=== PATIENT | female | born 1985 | race Caucasian/White ===

== ENCOUNTER 2018-07-03 09:04 | Emergency (ER) | payer OTHER ==
[~2018-07-03] VITALS: Ht 167.6 cm; Wt 136.1 kg
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
--- OUTSIDE RECORDS SUMMARY | ~2018-07-03 | XMS | Clinical Summary ---
Demographics + + + | Address | [address] [facility] [facility] [address] | | | [place] [address] | + + + | Home Phone | | + + + | Preferred Language | Unknown | + + + | Marital Status | | + + + | Baptism Affiliation | 1038 | + + + | Race | Unknown | + + + | Ethnic Group | Unknown | + + + Author + + + | Author | [facility] | + + + | Organization | [facility] | + + + | Address | Unknown | + + + | Phone | Unavailable | + + + Support + + + + + | Name | Relationship | Address | Phone | + + + + + | Kindra Reed | ECON | [address] | | | | | [place] | | | | | [address] | | + + + + + Care Team Providers + +------+ + | Care Aerosol Line Operator Name | Role | Phone | + [...] | | 04/17/ | 8115.0 | | [id number]: Qty: 1 on | | | MEDICAL [...] | | | GLBU | | | /[id number] | | | | | | | | 0 / | + +------+------+ +--------+--------+--------+ | Upper End PlateImplanted: | | | GLOBUS | | | 151.32 | | Qty: 1 on 09/05/2015 by Estuardo, | | | MEDICAL - | | | 3 | | Trinidad Dennison MD | | | GLBU | | | /[id number] | | | | | | | | 3 / | + +------+------+ +--------+--------+--------+ | Lower End PlateImplanted: | | | GLOBUS | | | 151.37 | | Qty: 1 on 09/05/2015 by Estuardo, | | | MEDICAL - | | | 3 | | Trinidad Dennison MD | | | GLBU | | | /[id number] | | | | | | | | 3 / | + +------+------+ +--------+--------+--------+ | Plate Ant Cerv Xtend 2lvl | | | GLOBUS | | | 161.23 | | 30mm - [id number]: | | | MEDICAL - | | | 0 / / | | Qty: 1 on 09/05/2015 by Estuardo, | | | GLBU | | | | | Trinidad Dennison MD | | | | | | | + +------+------+ +--------+--------+--------+ | Screw Xtend Fa S-T 4.2x14mm - | | | GLOBUS | | | 161.71 | | [id number]: Qty: 1 on | | | MEDICAL [...] GLOBUS | | | 161.71 | | [id number]: Qty: 1 on | | | MEDICAL [...] | ODS [employer] PLAN | ODS | [id number] | | | | | | HEALTH | | | | | | | PLAN | | | | | + +--------+ +------+-------+ + | MEDICAID | [employer] | [id number] | | | [address] | | | N | | | | [place] | | | [place] | | | | [phone] | | | 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
--- OUTSIDE RECORDS SUMMARY | ~2018-07-03 | XMS | Clinical Summary ---
Demographics + + + | Address | [address] [facility] [address] | | | [place] [address] | + + + | Home Phone | | + + + | Preferred Language | Unknown | + + + | Marital Status | | + + + | Taoism Affiliation | 1013 | + + + | Race | Unknown | + + + | Ethnic Group | Unknown | + + + Author + + + | Author | [facility] | | | and [place] | + + + | Organization | [facility] | | | and [place] | + + + | Address | Unknown | + + + | Phone | Unavailable | + + + Support + + +---------+ + | Name | Relationship | Address | Phone | + + +---------+ + | Kindra Norwood ECON | Unknown | | + + +---------+ + | Neville Urbina | ECON | Unknown | | + + +---------+ + Care Team Providers + +------+ + | Care Mechanical Product Engineer Name | Role | Phone | + +------+ + | Willie Escobar DO | PP | | + +------+ + Allergies + + + + + + | Active Allergy | Reactions | Severity | Noted | Comments | | | | | Date | | + + + + + + | Adhesive & Tape | Other (See Comments) | Medium | 01/01/20 | Bandaids removes | | | | | 16 | skin when removed | + + + + + + | Codeine | Hives, Shortness Of | High | 09/05/20 | HEARTBURN | | | Breath, Itching, | | 15 | | | | Nausea Only | | | | + + + + + + | Duloxetine | Other (See Comments) | | 12/27/19 | Suicidal ideation | | | | | 16 | | + + + + + + | Morphine | Itching, Nausea Only | Low | 09/05/20 | | | | | | 15 | | + + + + + + | Sulfa Antibiotics | Other (See Comments) | Medium | /10/20 | Eye pressure | | | | | 16 | problems with drops | + + + + + + Current Medications + + +---------+---------+------+------+-------+ | Prescription | Sig. | Disp. | Refills | Star | End | Statu | | | | | | t | Date | s | | | | | | Date | | | + + +---------+---------+------+------+-------+ | diphenhydrAMINE | Take 1 capsule by | 90 | 0 | 05/0 | | Activ | | (BENADRYL) 25 MG | mouth every 6 hours | capsule | | 3/20 | | e | | capsule | as needed for | | | 16 | | | | | Itching. | | | | | | + + +---------+---------+------+------+-------+ | diclofenac | take 1 tablet by | | 0 | 02/1 | | Activ | | (VOLTAREN) 75 mg EC | mouth every 12 hours | | | 2/20 | | e | | tablet | | | | 18 | | | + + +---------+---------+------+------+-------+ | cyclobenzaprine | | | 0 | 04/0 | | Activ | | (FLEXERIL) 10 mg | | | | 8/20 | | e | | tablet | | | | 18 | | | + + +---------+---------+------+------+-------+ | gabapentin | Take 600 mg by mouth | | 0 | 04/0 | | Activ | | (NEURONTIN) 300 mg | 4 times daily. | | | 4/20 | | e | | capsule | | | | 18 | | | + + +---------+---------+------+------+-------+ | levonorgestrel | 1 Device by | | | | | Activ | | (MIRENA, 52 MG,) 20 | Intrauterine route | | | | | e | | MCG/24HR IUD | once. | | | | | | + + +---------+---------+------+------+-------+ | loratadine | Take 10 mg by mouth | | | | | Activ | | (CLARITIN) 10 mg | Daily. | | | | | e | | tablet | | | | | | | + + +---------+---------+------+------+-------+ Active Problems + + + | Problem | Noted Date | + + + | Pain in both upper extremities | 07/06/2016 | + + + | Pain in both lower extremities | 07/06/2016 | + + + | IBS (irritable bowel syndrome) | 01/15/2016 | + + + | PONV (postoperative nausea and vomiting) | 01/15/2016 | + + + | S/P cervical spinal fusion | 01/15/2016 | + + + | H/O section | 01/15/2016 | + + + | Class III, BMI 40-49.9 | 01/15/2016 | + + + | Lumbar disc herniation | 01/15/2016 | + + + | Chronic pain syndrome | | + + + | Radiculopathy, lumbar region | | + + + | Postlaminectomy syndrome, not elsewhere classified | | + + + | Depression | | + + + | HTN (hypertension) | | + + + | Tobacco use | | + + + Family History + + +------+ + | Medical History | Relation | Name | Comments | + + +------+ + | No Known Problems | Brother | | | + + +------+ + | Gout | Father | | | + + +------+ + | Hypertension | Father | | | + + +------+ + | Kidney cancer | Father | | | + + +------+ + | No Known Problems | Maternal | | | | | Grandfath | | | | | er | | | + + +------+ + | Breast cancer | Maternal | | | | | Grandmoth | | | | | er | | | + + +------+ + | Diabetes | Mother | | Prediabetes | + + +------+ + | Hypertension | Mother | | | + + +------+ + | Ulcerative colitis | Mother | | "Colitis" | + + +------+ + | Heart disease | Other | | | + + +------+ + | Prostate cancer | Other | | Uncle | + + +------+ + | Stroke | Paternal | | | | | Aunt | | | + + +------+ + | Other (see comment) | Paternal | | BLOOD CLOTS | | | Aunt | | | + + +------+ + | Heart attack | Paternal | | | | | Grandfath | | | | | er | | | + + +------+ + | Auto-Immune | Paternal | | | | Disorders | Grandmoth | | | | | er | | | + + +------+ + | No Known Problems | Son | | | + + +------+ + + +------+ + + | Relation | Name | Status | Comments | + +------+ + + | Brother | | Alive | | + +------+ + + | Father | | | CANCER | | | | (Age | | | | | 63) | | + +------+ + + | Maternal Grandfather | | | | + +------+ + + | Maternal Grandmother | | | Complications hip fracture | | | | (Age | | | | | 80) | | + +------+ + + | Mother | | Alive | | + +------+ + + | Other | | | | + +------+ + + | Paternal Aunt | | Alive | | + +------+ + + | Paternal Aunt | | | | + +------+ + + | Paternal Aunt | | | | + +------+ + + | Paternal Grandfather | | | [place] | | | | (Age | | | | | 40) | | + +------+ + + | Paternal Grandmother | | Alive | | + +------+ + + | Son | | Alive | | + +------+ + + Social History + + + +--------+ + | Tobacco Use | Types | Packs/Day | Years | Date | | | | | Used | | + + + +--------+ + | Former Smoker | Cigarettes | 0.15 | 15 | 08/19/2000 - | | | | | | 08/19/2015 | + + + +--------+ + + +---+---+---+ | Smokeless Tobacco: | | | | | Never Used | | | | + +---+---+---+ + + +---------+ + | Alcohol Use | Drinks/We | oz/Week | Comments | | | ek | | | + + +---------+ + | Yes | 0 | 0.0 | Rare 1 time per year | | | Standard | | | [...] + + + | Blood Pressure | 122/78 | 02/18/2018926 PDT | + + + + | Pulse | 76 | 02/18/2018926 PDT | + + + + | Temperature | 37.5 C (99.5 F) | 03/26/20161950 PDT | + + + + | Respiratory Rate | 16 | 02/18/2018926 PDT | + + + + | Oxygen Saturation | 96% | 03/26/20161950 PDT | + + + + | Inhaled Oxygen | - | - | | Concentration | | | + + + + | Weight | 140.2 kg (309 lb) | 02/18/2018926 PDT | + + + + | Height | 167.6 cm (5' 6") | 02/18/2018926 PDT | + + + + | Body Mass Index | 49.87 | 02/18/2018926 PDT | + + + + Plan of [...] + + + | Vaccine: | | 10/19/2011 | | | Dtap/Tdap/Td (2 - | 2 | | | | Td) | | | | + + + + + Results Not on filefrom Last 3 Months Insurance + +--------+ +------+ +---------+ | Payer | Benefi | Subscriber | Type | Phone | Address | | | t Plan | ID | | | | | | / | | | | | | | Group | | | | | + +--------+ +------+ +---------+ | [facility] | PHP | [id number] | PPO | [phone] | | PLAN | PERSON | | | [phone] | | | | [place] | | | | | | | OPEN | | | | | | | OPTION | | | | | + +--------+ +------+ +---------+ + +--------+ +--------+ + + | Guarantor [...] [address] | | | al/Fam | | 1984 | [phone] | [place] | | | [place] | | | [phone] | + +--------+ +--------+ + +
--- OUTSIDE RECORDS SUMMARY | ~2018-07-03 | XMS | Clinical Summary ---
Demographics + + + | Address | [address] | | | [place] [address] | + + + | Home Phone | | + + + | Preferred Language | Unknown | + + + | Marital Status | | + + + | Baptist Affiliation | 1013 | + + + | Race | Unknown | + + + | Ethnic Group | Unknown | + + + Author + + + | Author | [facility] | | | and [place] | + + + | Organization | [facility] | | | and [place] | [...] Team Providers + +------+ + | Care Safety Specialist Name | Role | Phone | + [...] + | Paternal Grandfather | | | [place] | | | | (Age | | [...] | | + +--------+ +------+ +---------+ | [facility] | PHP | [id number] | PPO | [phone] | | PLAN | PERSON | [...] | | al/Fam | | 1984 | [phone] | [place] | | | bran | | | [phone] | [phone] | + +--------+ +--------+ + +
[~2018-07-03 09:04] MED LIST: ASACOL400 MG; CLINDAMYCIN HC150 MG; CLINDAMYCIN HC300 MG PO; CYCLOBENZAPRINE10 MG PO; CYCLOBENZAPRINE5 MG PO; DEXAMETHASONE4 MG PO; DIAZEPAM5 MG PO; DIPHENHYDRAMINE25 M1 PO; DOC-Q-LACE100 MG PO; DOXYCYCLINE HY100 MG PO; DOXYCYCLINE MO100 M1 PO; FLAGYL500 MG PO; GABAPENTIN300 MG PO; IMODIUM A-D2 M1; KEFLEX500 MG PO; LOMOTIL TABLET1 EACH; LORTAB ELIXIR473 ML PO; MEDROL4 M1 PO; MIRENA1 EACH; NAPROXEN500 MG PO; NORCO 5-325 TA1 EACH PO; OXYCODONE HCL5 MG PO; OXYCONTIN15 MG PO; OXYCONTIN20 MG PO; PERCOCET 5-3251 EACH PO; PERCOCET 7.5-31 EACH PO; POLYETHYLENE GL17 GM PO; TRAMADOL HCL50 MG
--- OUTSIDE RECORDS SUMMARY | 2018-07-03 09:08 | XMS ---
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 EDash VISIT COUNT (12 MO.) 1 HALINA Novak TOTAL 1 NOTE: Visits indicate total known visits. ED/UCC VISIT TRACKING (12 MO.) 07/03/2018 09:04 HALINA [place] TYPE: Emergency COMPLAINT: - LOWER BACK PAIN INPATIENT VISIT TRACKING (12 MO.) No inpatient visits to display in this time frame [id number]
[2018-07-03] MEDS ORDERED: FLONASE ALLERG9.9 ML NAS ×2 (09:18→09:19)
[2018-07-03] MEDS ORDERED: CYCLOBENZAPRINE10 MG PO (10:08)
[2018-07-03] MEDS ORDERED: NEURONTIN300 MG PO (10:08)
== END 2018-07-03 10:39 | disposition home or self-care (01) ==
LOC: ED 09:04
DX: M54.42 Lumbago with sciatica, left side (principal); M54.41 Lumbago with sciatica, right side; F17.200 Nicotine dependence, unspecified, uncomplicated; Z88.5 Allergy status to narcotic agent
CPT/HCPCS: 99283

== ENCOUNTER 2021-07-30 22:08 | Emergency (ER) | payer OTHER ==
[~2021-07-30] VITALS: Ht 167.6 cm; Wt 149.5 kg
[~2021-07-30 22:08] MED LIST changes: +AMITRIPTYLINE H75 MG PO; +BENADRYL25 MG PO; +DICLOFENAC35 MG PO; +FLONASE ALLERG9.9 ML NAS; +LOMOTIL TABLET1 EACH PO; +NEURONTIN300 MG PO; +PRILOSEC OTC20 MG PO; +TYLENOL325 MG PO
--- OUTSIDE RECORDS SUMMARY | 2021-07-30 22:50 | XMS ---
PreManage Notification: BROOKS SUGGS Security Psychiatric Rn Events 1 event(s) in the past 18 months Most recent security events: Elopement at [facility] 12/21/2020 05:58 - Other Details: PATIENT LWBS. CRITERIA MET - Group Notification - PDMP CARE PROVIDERS There are no care providers on record at this time. Terry has no Care Guidelines for this patient. EDash VISIT COUNT (12 MO.) 2 [facility] TOTAL 2 NOTE: Visits indicate total known visits. ED/UCC VISIT TRACKING (12 MO.) [facility] COMPLAINT: - NECK PAIN,MIGRAINE [facility]2020 05[facility] COMPLAINT: - NECK PAIN NON INJURY INPATIENT VISIT TRACKING (12 MO.) No inpatient visits to display in this time frame [id number]
== END 2021-07-31 00:29 | disposition home or self-care (01) ==
LOC: ED 22:08
DX: M54.2 Cervicalgia (principal); G43.909 Migraine, unspecified, not intractable, without status migrainosus; K21.9 Gastro-esophageal reflux disease without esophagitis; F17.200 Nicotine dependence, unspecified, uncomplicated; Z88.5 Allergy status to narcotic agent; Z79.899 Other long term (current) drug therapy
CPT/HCPCS: 96374; 96375; 99283-25; J1200; J1885; J2405; J2765; J7030

== ENCOUNTER 2021-07-31 10:15 | Day surgery (SDC) | payer OTHER ==
[~2021-07-31] VITALS: Ht 167.6 cm; Wt 140.4 kg
--- NOTE | 2021-07-31 12:44 | NUR ---
07/31/21 1244 Sheets,Brigida 1227 PT ARRIVED TO PACU ON 6L VIA MASK, PT WAKES AND IS REORIENTED TO PACU. PT REPORTS PAIN IN LEFT HIP. PT ROLLED TO RIGHT SIDE. O2 REMVOED 1235 PT ROLLED TO BACK AND HOB INCREASED, PT RATES PAIN IN BACK 4/10 AND TOLERABLE. PT SIPPING WATER.
--- NOTE | 2021-08-05 16:47 | PATH ---
[facility] [address] [place], [place] [address] Signed THIS IS AN ADDENDUM REPORT SPECIMEN(S): A BONE MARROW - CORE SPECIMEN(S): B BONE MARROW - ASPIRATION SPECIMEN(S): C FLOW CYTOMETRY, EDTA ASP CLINICAL HISTORY: Bone marrow biopsy. 36-year-old female with chronic leukocytosis. See attached. Evaluate MPN. 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 Peripheral blood - Neutrophilia (13.2K/uL). - Mild thrombocytosis. B. Bone marrow aspirate smears, clot section/cell block, and core biopsy: - Hypercellular bone marrow for age with trilineage progressive hematopoiesis and mild megakaryocytic hyperplasia. - Negative for morphologic features of myelodysplastic syndrome (MDS). - Negative for increase in plasma cells or infiltrative bone marrow processes. - Please see diagnostic comment. DIAGNOSTIC COMMENT: The patient's history of leukocytosis is noted. The bone marrow is hypercellular for age with trilineage progressive hematopoiesis. Mild megakaryocytic hyperplasia is noted. No morphologic features suggestive of myelodysplastic are identified. Concurrent flow cytometry analysis shows normal phenotype. Clinical concern for myeloproliferative neoplasm is noted. Correlation with pending cytogenetic studies and FISH BCR/ABL and JACK2 mutation study will be helpful for further assessment. The results will be reported in an addendum. This case has been reviewed and dictated by Linsey Rawls M.D.FACP, board certified hematopathologist. NA:vlg:C2NR PERIPHERAL BLOOD: HEMOGRAM ([facility], [facility]; 07/30/2021): WBCs 18.3 K/uL, RBCs 4.73 K/uL, HGB 12.2 0.0 g/dL, HCT 38.6%, MCV 81.7 f/L, MCHC 31.6 g/dL, RDW 17%, PLT 493 K/uL, and MPV 6.9 f/L. DIFFERENTIAL (manual): 72% neutrophils, 22% lymphocytes, 3% monocytes, 1% eosinophils, 1% basophils, and 1% myelocytes, absolute neutrophils count: 13.2K/uL. PATIENT NAME: BROOKS SUGGS PATHOLOGY DATE OF : 83 REPORT #: [id number] PHYSICIAN: ROSY ROCHA PCP: SARAH LAW MD REPORT IS CONFIDENTIAL AND NOT TO BE RELEASED WITHOUT AUTHORIZATION [facility] [address] [place], [place] [address] Signed Review of peripheral blood smear and CBC data demonstrate that the RBCs are normal in number and are normocytic normochromic with no anemia present. The WBCs are increased in number with neutrophilia present. The neutrophils show unremarkable morphology. No immature cells are seen. The platelets are slightly increased in number with occasional large platelets seen. BONE MARROW: BONE MARROW ASPIRATES SMEARS: The bone marrow aspirate smears are adequately cellular for evaluation. Trilineage hematopoiesis is present with progressive ordinary maturation. There is no increase in blasts noted. The M:E ratio appears normal. No dyshematopoiesis is identified. The megakaryocytes are scattered and appear increased in number with occasional large and hyperlobated forms seen. BONE MARROW DIFFERENTIAL (200 CELLS): 1.5% blasts, 4% promyelocytes, 8% myelocytes, 36% segmented neutrophils, 10% lymphocytes, 3% monocytes, 3% eosinophils, 2.5% plasma cells, 26% erythroid precursors. BONE MARROW CORE BIOPSY AND CLOT SECTION (CELL BLOCK): The bone marrow core biopsy demonstrates hypercellular bone marrow for age with an averaging cellularity of 75-80%. Trilineage hematopoiesis is present with progressive hematopoiesis with progressive trilineage hematopoiesis. There are no lymphoid aggregates, granulomas, or metastatic tumor cells present. The megakaryocytes are scattered and appear increased in number with occasional large hyperlobated megakaryocytes seen. The clot section shows similar findings. SPECIAL STAINS: Special stains are performed (with appropriately reactive control) and show the following results: - Iron stain (aspirate smears): Normal storage iron, negative for ring sideroblasts. - Iron (clot section/cell block B1): Storage iron present. - Reticulin stain (block A1): Mild to moderate increase in bone marrow reticulin fibrosis (grade1-2). IMMUNOHISTOCHEMICAL STAINS: Immunohistochemical stains are performed on (A1) (with appropriately reactive control) and show the following results: - CD34: Highlights scattered positive cells with no increase in blasts noted. - CD117: Highlights scattered positive cells with no increase in blasts noted. - MPO: Highlights myeloid precursors with normal pattern of distribution. - CD71: Highlights erythroid precursors with normal pattern of distribution. PATIENT NAME: BROOKS SUGGS PATHOLOGY DATE OF : 83 REPORT #: [id number] PHYSICIAN: ROSY ROCHA PCP: SARAH LAW MD REPORT IS CONFIDENTIAL AND NOT TO BE RELEASED WITHOUT AUTHORIZATION [address] [address] Signed - Factor VIII: Highlights megakaryocytes, slightly increased in number. NA:vlg FLOW CYTOMETRY: Bone marrow aspirate, flow cytometry: - No increase in blasts (1% myeloblasts). - Normal myeloid maturation. - No atypical lymphoid cell population. - See comment. COMMENT: While no hematopoietic abnormality is detected in this study, correlation with clinical, morphologic, and genetic findings is recommended for full interpretation and to assess for disease processes not fully examined by flow cytometry analysis, including myelodysplastic syndrome and myeloproliferative neoplasm. FLOW CYTOMETRY ANALYSIS: FLOW DIFFERENTIAL (% Total CD45 vs. SSC gating): Myeloid 80%; Lymphoid 9%; Monocyte 1%; Dim CD45/Blast: 1%. Cell Count: 3.7 x 10*3/uL. POPULATION ANALYSIS: BLASTS: Analysis of the dim CD45 gate demonstrates 1% myeloblasts by CD34/CD117. LYMPHOID CELLS: The lymphocyte gate comprises 9% of total events and includes 79% T-cells with a CD4:CD8 ratio of 1.4:1 and normal horne T-cell antigen expression. 19% of lymphocytes are polyclonal B-cells with a kappa:lambda ratio of 1.8:1. The remainders are NK-cells. MYELOID CELLS: The myeloid population comprises 80% of the total events. No aberrant or immature immunophenotypic expression is detected. MONOCYTES: The monocyte population comprises 1% of the total events. Monocytes are not increased. No aberrant immunophenotypic expression is detected. PLASMA CELLS: 0.6% plasma cells are detected in the screening gate neg-dimCD45/CD38. Plasma cells are CD45 dim and positive for CD19. ANTIBODIES USED: KAPPA, LAMBDA, CD20, CD10, CD19, CD23, CD38, FMC7, CD16, CD56, CD8, CD5, CD2, CD4, CD7, CD3, CD14, CD33, CD13, HLADR, CD34, CD117, CD15, CD45: TOTAL ANTIBODIES USED: 24. TCS GROSS DESCRIPTION: Two specimens are received in two containers, labeled "TD." A. The specimen, labeled "TD, core," is received in formalin and consists of one cylindrical bone core fragment with clot material measuring 0.3 cm in diameter and 2.5 cm in length. The specimen is PATIENT NAME: BROOKS SUGGS PATHOLOGY DATE OF : 83 REPORT #: [id number] PHYSICIAN: ROSY ROCHA PCP: SARAH LAW MD REPORT IS CONFIDENTIAL AND NOT TO BE RELEASED WITHOUT AUTHORIZATION [facility] [address] [place], [place] [address] Signed entirely submitted in cassette (A1) following decalcification in Immunocal. Cold ischemic time: Cannot be determined because of lack of information. Approximate time in formalin: 5 hours and 30 minutes. B. The specimen, labeled "TD, clot," is received in formalin and consists of thickened clot material measuring 3.0 x 2.0 x 0.7 cm in aggregate. The specimen is filtered and entirely submitted in cassette (B1). Bone marrow inventory also includes: Four peripheral smears, one EDTA tube bone marrow, two heparin tubes. AT (under the direct supervision of a pathologist) The Gross Description was prepared using a voice recognition system. The report was reviewed for accuracy; however, sound-alike word errors, addition and/or deletions may occur. If there is any question about this report, please contact Client Services. ADDITIONAL NOTES: Immunohistochemical and/or in situ hybridization studies were performed on this case with the appropriate positive controls that react as expected. This test was developed and its performance characteristics determined by [facility]. It has not been cleared or approved by the U.S. Food and Drug Administration. The FDA has determined that such clearance or approval is not necessary. This test is used for clinical purposes. It should not be regarded as investigational or for research. [facility] is certified under the Clinical Laboratory Improvement Amendments of 1988 (CLIA) as qualified to perform high complexity clinical laboratory testing. Immunohistochemical and/or in situ hybridization studies were performed on this case with the appropriate positive controls that react as expected. This test was developed and its performance characteristics determined by [facility]. It has not been cleared or approved by the U.S. Food and Drug Administration. The FDA has determined that such clearance or approval is not necessary. This test is used for clinical purposes. It should not be regarded as investigational or for research. [facility] is certified under the Clinical Laboratory Improvement Amendments of 1988 (CLIA) as qualified to perform high complexity clinical laboratory testing. In this case, certain antibodies were performed by both immunohistochemistry and flow cytometry analysis because flow cytometry analysis did not fully PATIENT NAME: BROOKS SUGGS PATHOLOGY DATE OF : [birth year] REPORT #: [id number] PHYSICIAN: ROSY PATHOLOGY PCP: SARAH LAW MD REPORT IS CONFIDENTIAL AND NOT TO BE RELEASED WITHOUT AUTHORIZATION [facility] [address] [place] [id number] Signed explain all the light microscopic findings. Immunohistochemistry aided in the analysis. Both methods are deemed medically necessary in this case. PERFORMING LABORATORY: The technical component was performed by [facility], [address] [place] [address] (Industrial Maintenance Repairer: Edgar Jeffrey D.O.; CLIA#: [id number]. Professional interpretation was performed by [facility], [facility], [address] [place] [address] (CLIA#: [id number]). The technical component was performed by [facility], [address] [place] [address] (Industrial Maintenance Repairer: Edgar Jeffrey D.O.; CLIA#: [id number]). Professional interpretation was performed by [facility], [facility], [address] [place] [address] (CLIA#: [id number]) IMAGES: A: [id number] A: [id number] FINAL DIAGNOSIS PERFORMED BY: Linsey Rawls MD, FACP, Aug 01 2021 10:10AM SPECIMEN SOURCE: A. FISH Analysis, BCR/ABL FISH, BM EDTA CLINICAL HISTORY: Chronic leukocytosis. Evaluate MPN. 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 Fluorescence in situ hybridization (FISH) analysis was performed using a tricolor, dual fusion BCR/ABL1 probe set used to detect the(9;22) translocation associated with CML and less commonly ALL or AML. All probe signals were within the normal reference range. This represents a NORMAL result. This analysis is limited to abnormalities detectable by the specific probes includes in the study. FISH should be interpreted within the context of a full cytogenetic analysis and hematologic evaluation. ISCN: Probe Set Detail: BCR/ABL1/ASS1 t(9;22): nuc soy 9q34(ASS1, ABL1)x2,22q11.2(BCRx2)[200] PATIENT NAME: BROOKS SUGGS PATHOLOGY DATE OF : 83 REPORT #: [id number] PHYSICIAN: ROSY PATHOLOGY PCP: SARAH LAW MD REPORT IS CONFIDENTIAL AND NOT TO BE RELEASED WITHOUT AUTHORIZATION [facility] [address] [place], [place] [address] Signed References: [place] of Genetics and Cytogenetics in Oncology and Hematology [email or web address] FISH Analysis Summary: Nuclei Scored: 200 Scoring Method: Manual; CPT Code 66556 Number of Probe units: 1 Multiplex Cells analyzed: Interphase Probe sets: Chrom 9: ABL1, Chrom 9: ASS1, Chrom 22: BCR ADDITIONAL NOTES: This test was developed and its performance characteristics determined by [facility] It has not been cleared or approved by the US Food and Drug Administration. The [employer] DNA probe vendor for this study was [employer]. PERFORMING LABORATORY: The technical and professional components of the FISH testing were performed by [facility], [address] [place] [address] (Industrial Maintenance Repairer: Edgar Jeffrey D.O.; CLIA#: [id number]). FINAL DIAGNOSIS PERFORMED BY: Chetna Khan MD, Pathologist Aug 05 2021 3:40PM REASON FOR ADDENDUM: To add results of additional testing. Diagnostician: Chetna Khan MD Pathologist Diagnostician: Linsey Rawls MD, FACP Pathologist Electronically Signed 08/05/2021 Copies: ~ PATIENT NAME: BROOKS SUGGS PATHOLOGY DATE OF : 83 REPORT #: [id number] PHYSICIAN: ROSY PATHOLOGY PCP: SARAH LAW MD REPORT IS CONFIDENTIAL AND NOT TO BE RELEASED WITHOUT AUTHORIZATION
== END 2021-07-31 13:09 | disposition home or self-care (01) ==
LOC: OPS 10:15 → DS 10:15 → OPS 12:00 → DS 12:00 → OPS 13:09
PROVIDERS: ATTEND Specialist
PROC: 079T3ZX Drainage of Bone Marrow, Percutaneous Approach, Diagnostic (ICD-10-PCS; 2021-07-31)
PROC: 07DR3ZX Extraction of Iliac Bone Marrow, Percutaneous Approach, Diagnostic (ICD-10-PCS; principal; 2021-07-31 12:00)
DX: C94.6 Myelodysplastic disease, not elsewhere classified (principal); D72.0 Genetic anomalies of leukocytes; D75.839 Thrombocytosis, unspecified; E66.01 Morbid (severe) obesity due to excess calories; F17.210 Nicotine dependence, cigarettes, uncomplicated; Z68.43 Body mass index [BMI] 50.0-59.9, adult
CPT/HCPCS: 01112; 84703; 85025; J2001; J2405; J2704; J3010; J7121

== ENCOUNTER 2021-10-29 11:07 | Emergency (ER) | payer OTHER ==
[~2021-10-29] VITALS: Ht 167.6 cm; Wt 149.7 kg
--- OUTSIDE RECORDS SUMMARY | 2021-10-29 11:14 | XMS ---
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 CRITERIA MET - Group Notification CARE PROVIDERS SARAH LAW [facility] 07/31/2021-Current PHONE: [phone] Terry has no Care Guidelines for this patient. Care History Medical/Surgical 07/31/2021 [facility] - Patient is currently established with [facility]. If patient is seen in the ED during business hours. Please contact CHWs at [facility]. Care Recommendation: If this patient has had 5 or more Emergency Department visits in the last 12 months.\T\nbsp; Patient will require education on the scope and purpose of the ED as an acute care provider not a Primary Care Provider and should not be utilized for chronic conditions.\T\nbsp; These are guidelines and the provider should exercise clinical judgment when providing care. E.D. VISIT COUNT (12 MO.) 3 [facility] TOTAL 3 NOTE: Visits indicate total known visits. ED/UCC VISIT TRACKING (12 MO.) 10/29/2021 11:08 [facility] [place] TYPE: Emergency COMPLAINT: - CHEST PAIN, L ARM PAIN, FATIGUED 07/30/2021 22:09 [facility] [place] TYPE: Emergency COMPLAINT: - NECK PAIN,MIGRAINE DIAGNOSES: - Other jail (current) drug therapy - Cervicalgia - Migraine, unspecified, not intractable, without status migrainosus - Allergy status to narcotic agent - Nicotine dependence, unspecified, uncomplicated - Gastro-esophageal reflux disease without esophagitis 12/21/2020 05:58 [facility] [place] TYPE: Emergency COMPLAINT: - NECK PAIN NON INJURY INPATIENT VISIT TRACKING (12 MO.) No inpatient visits to display in this time frame [email or web address]
--- NOTE | 2021-10-29 22:01 | EKG ---
[facility] [address] [facility] [place], [place] [address] Signed Sinus tachycardia Otherwise normal ECG When compared with ECG of 30-JUL-2021 09:58, No significant change was found Confirmed by GARO GARCIA DO ([id number]) on 10/29/2021 10:01:15 PM Electronically Signed By: GARO GARCIA DO 10/29/212200 PATIENT NAME: BROOKS SUGGS Electrocardiogram DATE OF : 83 PHYSICIAN: GARO GARCIA DO REPORT #: [id number] REPORT IS CONFIDENTIAL AND NOT TO BE RELEASED WITHOUT AUTHORIZATION
== END 2021-10-29 14:52 | disposition home or self-care (01) ==
LOC: ED 11:07
DX: R07.89 Other chest pain (principal); K21.9 Gastro-esophageal reflux disease without esophagitis; F17.200 Nicotine dependence, unspecified, uncomplicated; Z88.5 Allergy status to narcotic agent; Z79.899 Other long term (current) drug therapy
CPT/HCPCS: 71045; 71260; 80048; 84484; 84703; 85025; 85379; 93005; 93010; 99285-25; Q9967

== ENCOUNTER 2022-06-04 08:52 | Emergency (ER) | payer OTHER ==
[~2022-06-04] VITALS: Ht 167.6 cm; Wt 145.1 kg
[2022-06-04] MEDS ORDERED: TIZANIDINE HCL2 MG PO (09:04)
[2022-06-04] MEDS ORDERED: CARVEDILOL3.125 MG PO (09:04)
[2022-06-04] MEDS ORDERED: REGLAN10 MG PO (10:43)
== END 2022-06-04 10:54 | disposition home or self-care (01) ==
LOC: ED 08:52
DX: R51.9 Headache, unspecified (principal); K21.9 Gastro-esophageal reflux disease without esophagitis; F17.200 Nicotine dependence, unspecified, uncomplicated; Z88.5 Allergy status to narcotic agent; Z79.899 Other long term (current) drug therapy
CPT/HCPCS: 36415; 80048; 84703; 85025; 96361; 96374; 96375; 99283-25; 99406; J1100; J1200; J1885; J2765; J7030

== ENCOUNTER 2022-09-26 05:15 | Emergency (ER) | payer OTHER ==
[~2022-09-26] VITALS: Ht 170.2 cm; Wt 148.0 kg
[~2022-09-26 05:15] MED LIST changes: +CARVEDILOL3.125 MG PO; +REGLAN10 MG PO; +TIZANIDINE HCL2 MG PO
--- OUTSIDE RECORDS SUMMARY | 2022-09-26 05:18 | XMS ---
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 Care History Medical/Surgical 07/31/2021 [facility] - Patient is currently established with [facility]. If patient is seen in the ED during business hours. Please contact CHWs at [facility]. Care Recommendation: If this patient has had [...] care. E.D. VISIT COUNT (12 MO.) 3 [facility] TOTAL 3 NOTE: Visits indicate total known visits. ED/UCC VISIT TRACKING (12 MO.) 09/26/2022 05:16 [facility] [place] TYPE: Emergency COMPLAINT: - SOB, COLD SYMPTOMS 06/04/2022 08:53 [facility] [place] TYPE: Emergency COMPLAINT: - HEADACHE, N/V, DIZZY DIAGNOSES: - Nicotine dependence, unspecified, uncomplicated - Headache, unspecified - Other retirement (current) drug therapy - Allergy status to narcotic agent - Gastro-esophageal reflux disease without esophagitis 10/29/2021 11:[address] [facility] [place] TYPE: Emergency COMPLAINT: - CHEST PAIN, L ARM PAIN, FATIGUED DIAGNOSES: - Other chest pain - Gastro-esophageal reflux disease without esophagitis - Other retirement (current) drug therapy - Nicotine dependence, unspecified, uncomplicated - Allergy status to narcotic agent INPATIENT VISIT TRACKING (12 MO.) No inpatient visits to display in this time frame [email or web address]
[2022-09-26] MEDS ORDERED: LEVOFLOXACIN750 MG PO (07:13)
[2022-09-26] MEDS ORDERED: LIDOCAINE HCL100 ML MT (07:13)
[2022-09-26] MEDS ORDERED: VENTOLIN HFA18 GM INH (07:13)
== END 2022-09-26 07:30 | disposition home or self-care (01) ==
LOC: ED 05:15
DX: J18.9 Pneumonia, unspecified organism (principal); Z20.822 Contact with and (suspected) exposure to COVID-19; K21.9 Gastro-esophageal reflux disease without esophagitis; E66.9 Obesity, unspecified; G43.909 Migraine, unspecified, not intractable, without status migrainosus; F17.200 Nicotine dependence, unspecified, uncomplicated; Z88.5 Allergy status to narcotic agent; Z79.899 Other long term (current) drug therapy
CPT/HCPCS: 36415; 71045; 80048; 85025; 87502; 99285-25; U0003

== ENCOUNTER 2023-10-31 09:52 | Emergency (ER) | payer BC, OTHER ==
[~2023-10-31] VITALS: Ht 170.2 cm; Wt 147.9 kg
[~2023-10-31 09:52] MED LIST changes: +LEVOFLOXACIN750 MG PO; +LIDOCAINE HCL100 ML MT; +VENTOLIN HFA18 GM INH
[2023-10-31] MEDS ORDERED: CLEOCIN HCL300 MG PO (12:35)
[2023-10-31] MEDS ORDERED: HYDROCODON-ACE1 EA10 PO (12:35)
[2023-10-31 12:46] VITALS: BP 114/86
== END 2023-10-31 12:47 | disposition home or self-care (01) ==
LOC: ED 09:52
DX: N73.9 Female pelvic inflammatory disease, unspecified (principal); E66.9 Obesity, unspecified; F17.200 Nicotine dependence, unspecified, uncomplicated; Z88.5 Allergy status to narcotic agent; Z79.899 Other long term (current) drug therapy
CPT/HCPCS: 10160; 99282-25